=== PATIENT | female | born 1975 | race Caucasian/White ===

== ENCOUNTER 2016-06-23 08:23 | Day surgery (SDC) | payer OTHER ==
[2016-06-23] MEDS ORDERED: LACTATED RINGERS 1,000 ML IV ONE (08:45)
[2016-06-23] MEDS ORDERED: SUCCINYLCHOLINE 200 MG/10 ML VIAL IVP ONE (10:30)
[2016-06-23] MEDS ORDERED: PROPOFOL 200 MG/20 ML VIAL IVP ONE (10:30)
[2016-06-23] MEDS ORDERED: MIDAZOLAM 2 MG/2 ML VIAL IVP ONE (10:30)
[2016-06-23] MEDS ORDERED: LIDOCAINE-MPF 2% 5 ML VIAL IM ONE (10:30)
[2016-06-23] MEDS ORDERED: ROCURONIUM 50 MG/5 ML VIAL IVP ONE (10:30)
[2016-06-23] MEDS ORDERED: fentaNYL 100 MCG/2 ML VIAL IVP ONE (10:30)
== END 2016-06-23 08:24 | disposition home or self-care (01) ==
PROC: 0HJPXZZ Inspection of Skin, External Approach (ICD-10-PCS; principal; 2016-06-23 09:30)
DX: L05.01 Pilonidal cyst with abscess (principal); Z98.1 Arthrodesis status; Z87.891 Personal history of nicotine dependence
CPT/HCPCS: 11770; 81025; J7120

== ENCOUNTER 2017-06-04 08:00 | Outpatient (CLI) | payer OTHER ==
[2017-06-04 12:56] LABS: BASOPHILS % (AUTO) 0.3 %; EOSINOPHILS # (AUTO) 0.1 10^3/uL (0.0-0.7); EOSINOPHILS % (AUTO) 1.9 %; HGB - HEMOGLOBIN 12.9 g/dL (12.0-16.0); LYMPHOCYTES # (AUTO) 1.4 10^3/uL (1.5-3.5); LYMPHOCYTES % (AUTO) 23.7 %; MEAN CORPUSCULAR HEMOGLOBIN 31.1 pg (27.0-31.0); MEAN CORPUSCULAR HGB CONC 33.9 g/dL (32.0-36.0); MEAN CORPUSCULAR VOLUME 91.6 fL (81.0-99.0); MEAN PLATELET VOLUME 11.1 fL (7.9-10.8); MONOCYTES # (AUTO) 0.5 10^3/uL (0.0-1.0); MONOCYTES % (AUTO) 8.3 %; NEUTROPHILS # (AUTO) 3.9 10^3/uL (1.5-6.6); NEUTROPHILS % (AUTO) 65.8 %; PLT - PLATELET COUNT 191 10^3/uL (130-450); RED BLOOD COUNT 4.16 10^6/uL (4.20-5.40); RED CELL DISTRIBUTION WIDTH 13.7 % (12.0-15.0); WHITE BLOOD COUNT 5.9 x10^3/uL (4.8-10.8)
[2017-06-04 13:25] LABS: THYROID STIMULATING HORMONE 0.29 uIU/mL (0.34-5.60)
[2017-06-04 13:36] LABS: FOLATE 17.71 ng/mL (5.90 - >24.8)
[2017-06-04 13:39] LABS: ALBUMIN 4.2 g/dL (3.2-5.5); ALBUMIN/GLOBULIN RATIO 1.4 (1.0-2.2); ALKALINE PHOSPHATASE 41 IU/L (42-121); ALT ALANINE AMINOTRANSFERASE 21 IU/L (10-60); AST ASPARTATE AMINOTRANSFERASE 21 IU/L (10-42); BILIRUBIN,TOTAL 0.7 mg/dL (0.2-1.0); BUN - BLOOD UREA NITROGEN 15 mg/dL (6-20); CARBON DIOXIDE - CO2 27 mmol/L (21-32); CHLORIDE 102 mmol/L (101-111); CHOL/HDL RATIO 3.2 (<4.4); CHOLESTEROL 237 mg/dL; CREATININE 0.8 mg/dL (0.4-1.0); GFR - MDRD 78 (>89); GLUCOSE 91 mg/dL (70-100); HDL CHOLESTEROL 75 mg/dL; SODIUM 134 mmol/L (135-145); TOTAL PROTEIN 7.2 g/dL (6.7-8.2)
[2017-06-04 13:47] LABS: HEMOGLOBIN A1C 0.48 g/dL; HEMOGLOBIN A1C % 5.3 % (4.6-6.2)
[2017-06-04 14:29] LABS: LDL CHOLESTEROL,DIRECT 136 mg/dL; LDLD/HDL RATIO 1.8 (<4.4)
[2017-06-04 15:55] LABS: T4 (THYROXINE) 7.33 ug/dL (6.09-12.23)
== END 2017-06-04 08:01 | disposition home or self-care (01) ==
LOC: LAB.WCP 08:00
PROVIDERS: ATTEND Family Medicine
DX: Z00.00 Encounter for general adult medical examination without abnormal findings (principal)
CPT/HCPCS: 36415; 80050; 80061; 82306; 82607; 82746; 83036; 83721; 84436

== ENCOUNTER 2017-06-05 08:28 | Outpatient (CLI) | payer OTHER | END 2017-06-05 08:29 | disposition home or self-care (01) | LOC: LAB.WCP 08:28 | PROVIDERS: ATTEND Family Medicine | DX: E55.9 Vitamin D deficiency, unspecified (principal) | CPT/HCPCS: 36415; 82306 ==

== ENCOUNTER 2017-07-28 13:03 | Outpatient (CLI) | payer OTHER ==
--- NOTE | 2017-07-29 10:03 | Ultrasound Report ---
Procedure Date: 07/28/2017 Accession Number: [id number] / [id number] Procedure: US - Head or Neck Soft Tissue CPT Code: FULL RESULT: EXAM: Head or Neck Soft Tissue DATE: 07/28/2017 3:31 PM CLINICAL HISTORY: THYROID NODULE COMPARISON: 03/02/2006 nuclear medicine and 04/27/2006 ultrasound. TECHNIQUE: Real time sonographic imaging of the thyroid was performed by the recreational programs director. Multiple correspondence representative static images were saved for review. FINDINGS: THYROID GLAND: Right Lobe: 4.6 x 2 x 2 cm, volume 10 cc. Normal background echotexture. Right Lobe Nodules: 1. Dominant lower pole 2.1 x 2 x 1.9 cm complex hypoechoic cystic and solid nodule with peripheral vascularity previously biopsied in 2006. 2. Midpole 1 x 0.9 x 0.8 complex isoechoic solid and cystic nodule with vascularity 3. Upper pole 1 x 0.8 x 0.6 cm hypoechoic solid vascular nodule Left Lobe: 4.7 x 2.2 x 1.5 cm, volume 8.5 cc. Normal background echotexture. Left Lobe Nodules: 1. Superior pole 2.8 x 1.7 x 1.1 cm complex vascular cystic and solid nodule with calcifications. TI RADS TR 4 Moderately suspicious suggest FNA. 2. Lower pole 1.6 x 1.5 x 0.9 cm cystic nodule with internal vascular solid nodule and possible punctate calcifications. TI RADS TR 4 Moderately suspicious suggest FNA. Isthmus: 0.3 cm AP. Isthmic Nodules: 0.5 x 0.3 x 0.6 cm hypoechoic solid avascular spongiform nodule. LYMPH NODES: No adenopathy demonstrated in the central or lateral compartment. OTHER: None. IMPRESSION: 1. 2 moderately suspicious left thyroid nodules for which ultrasound guided FNA is suggested. If FNA is not performed suggest follow-up ultrasound in 6 months. Management recommendations are based on 2015 [place] [employer] Management Guidelines for Adult Patients with Thyroid Nodules and Differentiated Thyroid Cancer. RADIA
== END 2017-07-28 13:04 | disposition home or self-care (01) ==
LOC: DI 13:03
PROVIDERS: ATTEND Family Medicine
DX: E04.2 Nontoxic multinodular goiter (principal)
CPT/HCPCS: 76536

== ENCOUNTER 2017-10-01 12:29 | Outpatient (CLI) | payer OTHER ==
[2017-10-01] MEDS ORDERED: BUFFERED LIDOCAINE 10 ML SYRINGE IU ONE (14:37)
--- NOTE | 2017-10-01 15:16 | Ultrasound Report ---
Procedure Date: 10/01/2017 Accession Number: [id number] / [id number] Procedure: US - Fine Needle Aspiration CPT Code: FULL RESULT: PROCEDURE: ULTRASOUND GUIDED BIOPSY PREOPERATIVE DIAGNOSIS: 2 moderately suspicious left thyroid nodules for FNA POSTOPERATIVE DIAGNOSIS: Same TECHNIQUE: Following written and oral informed consent including procedure risks and alternatives, the patient was brought to the Ultrasound suite and positioned. Using local anesthesia, sterile technique, and direct ultrasound control, the superior pole 2.8 x 1.7 x 1.1 cm complex vascular cystic and solid nodule with calcifications was targeted.. A total of 4 22-gauge FNA samples were obtained. Then the more inferior 1.6 x 1.5 x 0.9 cm cyst with solid mural nodule was targeted and 4 22-gauge FNA samples were obtained. ANESTHESIA: rug renovator: Dr Tello ESTIMATED BLOOD LOSS: Minimal FLUOROSCOPY TIME: None. COMPLICATIONS: None. CONDITION: Good. FINDINGS: Real-time ultrasound performed with static images saved demonstrate the needle within the nodules on all samples. IMPRESSION: Uncomplicated ultrasound guided FNA of 2 left thyroid nodules as described. Pathology results will be reported separately. RADIA
[2017-10-01 15:40] VITALS: BP 106/63
== END 2017-10-01 12:30 | disposition home or self-care (01) ==
LOC: DI 12:29
PROVIDERS: ATTEND Surgery
DX: E04.2 Nontoxic multinodular goiter (principal)
CPT/HCPCS: 10022

== ENCOUNTER 2017-10-06 11:08 | Outpatient (CLI) | payer OTHER ==
[2017-10-06 19:30] LABS: THYROID STIMULATING HORMONE 0.33 uIU/mL (0.34-5.60)
[2017-10-06 19:32] LABS: FREE T4 (FREE THYROXINE) 0.78 ng/dL (0.58-1.64)
== END 2017-10-06 11:09 | disposition home or self-care (01) ==
LOC: LAB.WCP 11:08
PROVIDERS: ATTEND Family Medicine
DX: E04.1 Nontoxic single thyroid nodule (principal); E55.9 Vitamin D deficiency, unspecified
CPT/HCPCS: 36415; 81599; 82306; 83519; 84439; 84443; 84481

== ENCOUNTER 2020-05-22 18:24 | Outpatient (CLI) | payer OTHER | END 2020-05-22 18:25 | disposition home or self-care (01) | LOC: COV 18:24 | PROVIDERS: ATTEND Family Medicine | DX: R50.9 Fever, unspecified (principal); M79.10 Myalgia, unspecified site; R53.83 Other fatigue; R11.2 Nausea with vomiting, unspecified; Z20.822 Contact with and (suspected) exposure to COVID-19 ==

== ENCOUNTER 2021-04-25 16:08 | Outpatient (CLI) | payer OTHER ==
[2021-04-25 18:22] LABS: BASOPHILS % (AUTO) 0.3 %; EOSINOPHILS # (AUTO) 0.1 10^3/uL (0.0-0.7); EOSINOPHILS % (AUTO) 2.1 %; HCT - HEMATOCRIT 37.4 % (37.0-47.0); HGB - HEMOGLOBIN 12.2 g/dL (12.0-16.0); LYMPHOCYTES # (AUTO) 2.3 10^3/uL (1.5-3.5); LYMPHOCYTES % (AUTO) 35.7 %; MEAN CORPUSCULAR HEMOGLOBIN 29.8 pg (27.0-31.0); MEAN CORPUSCULAR HGB CONC 32.6 g/dL (32.0-36.0); MEAN CORPUSCULAR VOLUME 91.2 fL (81.0-99.0); MEAN PLATELET VOLUME 12.3 fL (7.9-10.8); MONOCYTES # (AUTO) 0.6 10^3/uL (0.0-1.0); MONOCYTES % (AUTO) 8.7 %; NEUTROPHILS # (AUTO) 3.4 10^3/uL (1.5-6.6); PLT - PLATELET COUNT 249 10^3/uL (130-450); RED CELL DISTRIBUTION WIDTH 13.7 % (12.0-15.0); WHITE BLOOD COUNT 6.3 x10^3/uL (4.8-10.8)
[2021-04-25 18:54] LABS: ALBUMIN 4.5 g/dL (3.2-5.5); ALBUMIN/GLOBULIN RATIO 1.4 (1.0-2.2); ALKALINE PHOSPHATASE 42 IU/L (42-121); ALT ALANINE AMINOTRANSFERASE 21 IU/L (10-60); AST ASPARTATE AMINOTRANSFERASE 22 IU/L (10-42); BILIRUBIN,TOTAL 0.4 mg/dL (0.2-1.0); BUN - BLOOD UREA NITROGEN 21 mg/dL (6-20); CALCIUM 9.6 mg/dL (8.5-10.3); CARBON DIOXIDE - CO2 28 mmol/L (21-32); CHLORIDE 100 mmol/L (101-111); CHOL/HDL RATIO 2.9 (<4.4); CHOLESTEROL 273 mg/dL; CREATININE 0.8 mg/dL (0.4-1.0); GFR - MDRD 77 (>89); GLUCOSE 102 mg/dL (70-100); HDL CHOLESTEROL 95 mg/dL; LDL CHOLESTEROL,CALCULATED 169 mg/dL; LDL/HDL RATIO 1.8 (<4.4); SODIUM 137 mmol/L (135-145); TOTAL PROTEIN 7.7 g/dL (6.7-8.2); TRIGLYCERIDES 44 mg/dL; VLDL CHOLESTEROL 9 mg/dL
[2021-04-25 19:07] LABS: FREE T3 3.4 pg/mL (2.5-3.9)
[2021-04-25 19:08] LABS: FREE T4 (FREE THYROXINE) 0.7 ng/dL (0.58-1.64)
== END 2021-04-25 16:09 | disposition home or self-care (01) ==
LOC: LAB.N 16:08
PROVIDERS: ATTEND Family Medicine
DX: E04.2 Nontoxic multinodular goiter (principal); E55.9 Vitamin D deficiency, unspecified; Z86.018 Personal history of other benign neoplasm
CPT/HCPCS: 36415; 80050; 80061; 83721; 84439; 84481

== ENCOUNTER 2021-05-10 17:34 | Outpatient (CLI) | payer OTHER ==
[2021-05-10 21:06] LABS: ESTIMATED AVERAGE GLUCOSE 111 mg/dL (70-100); HEMOGLOBIN A1c% 5.5 % (4.27-6.07)
== END 2021-05-10 17:35 | disposition home or self-care (01) ==
LOC: LAB.N 17:34
PROVIDERS: ATTEND Family Medicine
DX: R73.9 Hyperglycemia, unspecified (principal)
CPT/HCPCS: 36415; 83036

== ENCOUNTER 2021-06-03 06:46 | Outpatient (CLI) | payer OTHER ==
--- NOTE | 2021-06-04 09:22 | Ultrasound Report ---
PROCEDURE: Head or Neck Soft Tissue INDICATIONS: GOITER TECHNIQUE: Real time scanning was performed of the neck region of interest, with image documentation . COMPARISON: None. FINDINGS: No soft tissue neck abnormality seen bilaterally IMPRESSION: PROCEDURE: Head or Neck Soft Tissue INDICATIONS: GOITER TECHNIQUE: Real-time scanning was performed of the thyroid gland, with image documentation. COMPARISON: Ultrasound thyroid, 07/28/2017. FINDINGS: Right: Thyroid lobe measures 5.5 x 1.7 x 1.9 cm, and is heterogeneous in echotexture. Multiple nodu les are present. Left: Thyroid lobe measures 5.5 x 1.8 x 1.7 cm, and is heterogeneous in echotexture. Multiple nodul es are present. Isthmus: 3.2 mm thick. Nodule number: One Location: Right superior Size: 1.0 x 0.8 x 1.0 cm (previously0.8 x 0.6 x 1.1 cm). Composition: Solid Echogenicity: Hypoechoic Shape: wider than tall. Margins: Smooth Echogenic foci: Punctate Total points: 7 ACR TI-RADS category: TI-RADS 5 Nodule number: Two Location: Right mid Size: 1.4 x0.9 x 0.9 cm (previously1.0 x 0.9 x 0.8 cm). Composition: Solid Echogenicity: Hypoechoic Shape: wider than tall. Margins: Smooth Echogenic foci: Punctate Total points: 7 ACR TI-RADS category: TI-RADS 5 Nodule number: Three Location: Right inferior Size: 2.1 x 1.5 x 1.8 cm (previously2.1 x 1.9 x 2.1 cm). Composition: Solid Echogenicity: Hyperechoic Shape: wider than tall. Margins: Lobulated Echogenic foci: Macrocalcification Total points: 7 ACR TI-RADS category: TI-RADS 4 Nodule number: Four Location: Left mid to superior Size: 2.9 x 1.5 x 1.5 cm (previously 2.8 x 1.7 x 1.1 cm ). Composition: Solid Echogenicity: Hypoechoic Shape: wider than tall. Margins: Lobulated Echogenic foci: Macrocalcification Total points: 7 ACR TI-RADS category: TI-RADS 5 Nodule number: Five Location: Left inferior Size: 1.5 x 0.9 x 1.0 cm (previously 1.6 x 0.9 x 1.0 cm ). Composition: Partially cystic Echogenicity: Anechoic Shape: wider than tall. Margins: Smooth Echogenic foci: Punctate Total points: 3 ACR TI-RADS category: TI-RADS 3 Nodule number: Six Location: Is most Size: 0.6 x 0.4 x 0.6 cm (previously 0.6 x 0.3 x 0.5 cm ). Composition: Solid Echogenicity: Hypoechoic Shape: wider than tall. Margins: Lobulated Echogenic foci: None Total points: 7 ACR TI-RADS category: TI-RADS 5 IMPRESSION: 1. Multiple thyroid nodules are again identified. 2. Nodules are generally stable in size. ACR TI-RADS definitions and recommendations: TI-RADS 1 (benign): 0 points. FNA not needed. TI-RADS 2 (not suspicious): 2 points. FNA not needed. TI-RADS 3 (mildly suspicious): 3 points. "FNA if 2.5 cm or larger, follow up if 1.5 cm or larger (at 1, 3, and 5 years). TI-RADS 4 (moderately suspicious): 4-6 points. "FNA if 1.5 cm or larger, follow up if 1 cm or larger (at 1, 2, 3, and 5 years). TI-RADS 5 (highly suspicious): 7 points or more. "FNA if 1 cm or larger, follow up if 0.5 cm or larger (every year for 5 years). Reviewed by: Anna Peralta MD on 06/04/2021 9:21 AM PDT Approved by: Anna Peralta MD on 06/04/2021 9:21 AM PDT Station ID: [id number]
== END 2021-06-03 06:47 | disposition home or self-care (01) ==
LOC: DI 06:46
PROVIDERS: ATTEND Family Medicine
DX: E04.2 Nontoxic multinodular goiter (principal)

== ENCOUNTER 2022-11-29 10:35 | Outpatient (CLI) | payer OTHER ==
[2022-11-29 19:29] LABS: BASOPHILS % (AUTO) 0.3 %; EOSINOPHILS # (AUTO) 0.1 10^3/uL (0.0-0.7); EOSINOPHILS % (AUTO) 1.1 %; HCT - HEMATOCRIT 37.2 % (37.0-47.0); HGB - HEMOGLOBIN 11.7 g/dL (12.0-16.0); LYMPHOCYTES # (AUTO) 1.3 10^3/uL (1.5-3.5); LYMPHOCYTES % (AUTO) 20.1 %; MEAN CORPUSCULAR HEMOGLOBIN 29.5 pg (27.0-31.0); MEAN CORPUSCULAR HGB CONC 31.5 g/dL (32.0-36.0); MEAN CORPUSCULAR VOLUME 93.7 fL (81.0-99.0); MEAN PLATELET VOLUME 13.7 fL (7.9-10.8); MONOCYTES # (AUTO) 0.5 10^3/uL (0.0-1.0); NEUTROPHILS # (AUTO) 4.5 10^3/uL (1.5-6.6); NEUTROPHILS % (AUTO) 70.3 %; PLT - PLATELET COUNT 222 10^3/uL (130-450); RED BLOOD COUNT 3.97 10^6/uL (4.20-5.40); RED CELL DISTRIBUTION WIDTH 12.9 % (12.0-15.0); WHITE BLOOD COUNT 6.4 x10^3/uL (4.8-10.8)
[2022-11-29 19:44] LABS: ALBUMIN 4.2 g/dL (3.2-5.5); ALBUMIN/GLOBULIN RATIO 1.4 (1.0-2.2); ALKALINE PHOSPHATASE 48 IU/L (42-121); ALT ALANINE AMINOTRANSFERASE 10 IU/L (10-60); AST ASPARTATE AMINOTRANSFERASE 14 IU/L (10-42); BILIRUBIN,TOTAL 0.6 mg/dL (0.2-1.0); BUN - BLOOD UREA NITROGEN 12 mg/dL (6-20); CALCIUM 9.4 mg/dL (8.5-10.3); CARBON DIOXIDE - CO2 30 mmol/L (21-32); CHLORIDE 104 mmol/L (101-111); CHOLESTEROL 213 mg/dL; CREATININE 0.8 mg/dL (0.6-1.3); GFR - MDRD 76 (>89); GLUCOSE 80 mg/dL (74-104); HDL CHOLESTEROL 70 mg/dL; LDL CHOLESTEROL,CALCULATED 132 mg/dL; LDL/HDL RATIO 1.9 (<4.4); POTASSIUM 4.4 mmol/L (3.5-4.5); SODIUM 137 mmol/L (135-145); TOTAL PROTEIN 7.1 g/dL (6.4-8.9); TRIGLYCERIDES 53 mg/dL (48-352); VLDL CHOLESTEROL 11 mg/dL
[2022-11-29 19:56] LABS: THYROID STIMULATING HORMONE 0.16 uIU/mL (0.34-5.60)
[2022-12-03 20:17] LABS: ESTIMATED AVERAGE GLUCOSE 108 mg/dL (70-100); HEMOGLOBIN A1c% 5.4 % (4.27-6.07)
== END 2022-11-29 10:36 | disposition home or self-care (01) ==
LOC: LAB.N 10:35
PROVIDERS: ATTEND Family Medicine
DX: R73.9 Hyperglycemia, unspecified (principal); Z13.220 Encounter for screening for lipoid disorders; E04.1 Nontoxic single thyroid nodule; Z85.828 Personal history of other malignant neoplasm of skin
CPT/HCPCS: 36415; 80050; 80061; 83036; 83721; 84439

== ENCOUNTER 2023-02-04 12:18 | Outpatient (CLI) | payer OTHER ==
[2023-02-04 18:29] LABS: THYROID STIMULATING HORMONE 0.32 uIU/mL (0.34-5.60)
== END 2023-02-04 12:19 | disposition home or self-care (01) ==
LOC: LAB.N 12:18
PROVIDERS: ATTEND Family Medicine
DX: E04.2 Nontoxic multinodular goiter (principal)
CPT/HCPCS: 36415; 84439; 84443

== ENCOUNTER 2023-03-11 08:14 | Outpatient (CLI) | payer OTHER ==
[2023-03-11 12:12] LABS: BASOPHILS % (AUTO) 0.4 %; EOSINOPHILS # (AUTO) 0.1 10^3/uL (0.0-0.7); EOSINOPHILS % (AUTO) 2.1 %; HCT - HEMATOCRIT 38.9 % (37.0-47.0); HGB - HEMOGLOBIN 12.4 g/dL (12.0-16.0); LYMPHOCYTES # (AUTO) 1.4 10^3/uL (1.5-3.5); LYMPHOCYTES % (AUTO) 25.4 %; MEAN CORPUSCULAR HEMOGLOBIN 29.5 pg (27.0-31.0); MEAN CORPUSCULAR HGB CONC 31.9 g/dL (32.0-36.0); MEAN CORPUSCULAR VOLUME 92.6 fL (81.0-99.0); MEAN PLATELET VOLUME 13.1 fL (7.9-10.8); MONOCYTES # (AUTO) 0.5 10^3/uL (0.0-1.0); MONOCYTES % (AUTO) 9.1 %; NEUTROPHILS # (AUTO) 3.5 10^3/uL (1.5-6.6); NEUTROPHILS % (AUTO) 62.6 %; PLT - PLATELET COUNT 245 10^3/uL (130-450); RED CELL DISTRIBUTION WIDTH 14.6 % (12.0-15.0); WHITE BLOOD COUNT 5.6 x10^3/uL (4.8-10.8)
[2023-03-11 13:00] LABS: ALBUMIN 4.3 g/dL (3.2-5.5); ALBUMIN/GLOBULIN RATIO 1.4 (1.0-2.2); ALKALINE PHOSPHATASE 54 IU/L (42-121); ALT ALANINE AMINOTRANSFERASE 16 IU/L (10-60); AST ASPARTATE AMINOTRANSFERASE 19 IU/L (10-42); BILIRUBIN,TOTAL 0.5 mg/dL (0.2-1.0); BUN - BLOOD UREA NITROGEN 12 mg/dL (6-20); CALCIUM 9.6 mg/dL (8.5-10.3); CARBON DIOXIDE - CO2 30 mmol/L (21-32); CHLORIDE 104 mmol/L (101-111); CHOL/HDL RATIO 2.9 (<4.4); CHOLESTEROL 238 mg/dL; CREATININE 0.8 mg/dL (0.6-1.3); GFR - MDRD 76 (>89); GLUCOSE 92 mg/dL (74-104); HDL CHOLESTEROL 83 mg/dL; LDL CHOLESTEROL,CALCULATED 144 mg/dL; LDL/HDL RATIO 1.7 (<4.4); POTASSIUM 4.7 mmol/L (3.5-4.5); SODIUM 138 mmol/L (135-145); TOTAL PROTEIN 7.4 g/dL (6.4-8.9); TRIGLYCERIDES 54 mg/dL (48-352); VLDL CHOLESTEROL 11 mg/dL
[2023-03-11 13:03] LABS: THYROID STIMULATING HORMONE 0.45 uIU/mL (0.34-5.60)
[2023-03-11 13:50] LABS: ESTIMATED AVERAGE GLUCOSE 108 mg/dL (70-100); HEMOGLOBIN A1c% 5.4 % (4.27-6.07)
== END 2023-03-11 08:15 | disposition home or self-care (01) ==
LOC: LAB.N 08:14
PROVIDERS: ATTEND Family Medicine
DX: E78.5 Hyperlipidemia, unspecified (principal); R73.9 Hyperglycemia, unspecified; E04.1 Nontoxic single thyroid nodule
CPT/HCPCS: 36415; 80050; 80061; 83036; 83721

== ENCOUNTER 2023-03-30 14:48 | Outpatient (CLI) | payer OTHER ==
--- NOTE | 2023-03-30 22:43 | Ultrasound Report ---
PROCEDURE: Soft Tissue Head or Neck INDICATIONS: THYROID NODULE TECHNIQUE: Real-time scanning was performed of the thyroid gland, with image documentation. COMPARISON: Thyroid ultrasound 06/03/2021 FINDINGS: Right: Thyroid lobe measures 5.5 x 1.9 x 1.6 cm, and is homogeneous in echotexture. Left: Thyroid lobe measures 5.3 x 1.8 x 1.7 cm, and is homogenous in echotexture. Isthmus: 0.4 cm thick. Nodule number: One Location: Right superior Size: 1.1 x 0.8 x 0.9 cm, previously 1.0 x 0.8 x 1.0 cm. Composition: Solid (2 points). Echogenicity: Hypoechoic (2 points). Shape: wider than tall (0 points). Margins: Smooth (0 points). Echogenic foci: Punctate echogenic foci (3 points). Total points: 7 ACR TI-RADS category: TI-RADS 5: Highly suspicious. Nodule number: Two Location: Right mid Size: 1.2 x 0.9 x 0.9 cm, previously 1.4 x 0.9 x 0.9 cm. Composition: Solid (2 points). Echogenicity: Hypoechoic (2 points). Shape: wider than tall (0 points). Margins: Smooth (0 points). Echogenic foci: Punctate echogenic foci (3 points). Total points: 7 ACR TI-RADS category: TI-RADS 5: Highly suspicious. Nodule number: Three Location: Right inferior Size: 2.1 x 1.5 x 1.7 cm, previously 2.1 x 1.9 x 2.1 cm. Composition: Solid (2 points). Echogenicity: Hyperechoic (1 point). Shape: wider than tall (0 points). Margins: Smooth (0 points). Echogenic foci: Peripheral (rim) calcification (2 points). Total points: 5 ACR TI-RADS category: TI-RADS 4: Moderately suspicious. Nodule number: Four Location: Left superior/mid Size: 3.0 x 1.5 x 1.5 cm, previously 2.9 x 1.5 x 1.5 cm. Composition: Mixed cystic and solid (1 point). Echogenicity: Isoechoic (1 point). Shape: wider than tall (0 points). Margins: Smooth (0 points). Echogenic foci: Punctate echogenic foci (3 points). Total points: 5 ACR TI-RADS category: TI-RADS 4: Moderately suspicious. Nodule number: Five Location: Left inferior Size: 1.7 x 1.0 x 1.0 cm, previously 1.5 x 0.9 x 1.0 cm cm. Composition: Mixed cystic and solid (1 point). Echogenicity: Isoechoic (1 point). Shape: wider than tall (0 points). Margins: Smooth (0 points). Echogenic foci: Punctate echogenic foci (3 points). Total points: 5 ACR TI-RADS category: TI-RADS 4: Moderately suspicious. Nodule number: Six Location: Isthmus Size: 0.8 x 0.5 x 0.8 cm, previously 0.6 x 0.4 x 0.6 cm. Composition: Spongiform (0 points). Echogenicity: Hypoechoic (2 points). Shape: wider than tall (0 points). Margins: Smooth (0 points). Echogenic foci: None (0 points). Total points: 2 ACR TI-RADS category: TI-RADS 2: Not suspicious. IMPRESSION: Multiple thyroid nodules are not significantly changed in size compared to 06/03/2021. Hi ghly suspicious 1.1 cm right superior nodule (#1) and 1.2 cm right mid nodule (nodule #3) meets ACR T I RADS imaging criteria for FNA as indicated below, if not already performed. ACR TI-RADS definitions and recommendations: TI-RADS 1 (benign): 0 points. FNA not needed. TI-RADS 2 (not suspicious): 2 points. FNA not needed. TI-RADS 3 (mildly suspicious): 3 points. "FNA if 2.5 cm or larger, follow up if 1.5 cm or larger (at 1, 3, and 5 years). TI-RADS 4 (moderately suspicious): 4-6 points. "FNA if 1.5 cm or larger, follow up if 1 cm or larger (at 1, 2, 3, and 5 years). TI-RADS 5 (highly suspicious): 7 points or more. "FNA if 1 cm or larger, follow up if 0.5 cm or larger (every year for 5 years). Reviewed by: Ana Nolen MD on 03/30/2023 10:42 PM PST Approved by: Ana Nolen MD on 03/30/2023 10:42 PM PST Station ID: [id number]
== END 2023-03-30 14:49 | disposition home or self-care (01) ==
LOC: DI 14:48
PROVIDERS: ATTEND Family Medicine
DX: E04.2 Nontoxic multinodular goiter (principal)

== ENCOUNTER 2023-04-27 08:00 | Outpatient (CLI) | payer OTHER ==
[2023-04-27 21:25] LABS: FECAL OCCULT BLOOD (FIT) NEGATIVE (NEGATIVE)
== END 2023-04-27 23:59 | disposition home or self-care (01) ==
LOC: LAB.N 08:00
PROVIDERS: ATTEND Family Medicine
DX: Z12.11 Encounter for screening for malignant neoplasm of colon (principal)
CPT/HCPCS: 82274

== ENCOUNTER 2023-05-04 15:29 | Outpatient (CLI) | payer OTHER ==
--- NOTE | 2023-05-05 10:11 | Mammography Report ---
BILATERAL DIGITAL SCREENING MAMMOGRAM 3D/2D: 05/04/2023 CLINICAL: Baseline exam. Routine screening. No prior exams were available for comparison. Both breasts are heterogeneously dense, which may obscure small masses (category c / 51-75% glandular tissue). No significant masses, calcifications, or other findings are seen in either breast. IMPRESSION: NEGATIVE There is no mammographic evidence of malignancy. A 1 year screening mammogram is recommended. Based on the Tyrer Cuzick model (a risk assessment model) the patient's lifetime risk is 14.5% and he r 10 year risk is 3.3%. According to the ACR, ACS, and NCCN guidelines, an annual breast MRI exam meera ng with mammogram is recommended if the patient's lifetime risk is 20% or greater. This exam was interpreted at Station ID: [id number]. NOTE: For mammograms, a report in lay terms will be sent to the patient. Approximately 15% of breast malignancies will not be visualized mammographically. In the management of a palpable breast mass, a negative mammogram must not discourage biopsy of a clinically suspicious lesion. Electronically Signed By: Luis Manuel daniels/[email or web address]:05/05/2023 08:55:21 ACR BI-RADS Category 1: Negative 3341F PARENCHYMAL PATTERN: (D) - The breast(s) demonstrate(s) heterogeneously dense fibroglandular parcarmenzay ma. BI-RADS CATEGORY: (1) - 1 RECOMMENDATION: (ANNUAL) - Recommend routine annual screening mammography. [id number] 1 year screening LATERALITY: (B)
== END 2023-05-04 15:30 | disposition home or self-care (01) ==
LOC: DI.N 15:29
DX: Z12.31 Encounter for screening mammogram for malignant neoplasm of breast (principal); R92.333 Mammographic heterogeneous density, bilateral breasts